=== PATIENT | male | born 1975 | race African-American/Black ===

== ENCOUNTER → 2017-10-23 | Outpatient (CLI) | payer OTHER | LOC: M RAD 09:47 | DX: M54.2 Cervicalgia (principal); M51.34 Other intervertebral disc degeneration, thoracic region; M41.35 Thoracogenic scoliosis, thoracolumbar region | CPT/HCPCS: 72052 ==

== ENCOUNTER 2017-12-12 20:01 | Emergency (ER) | payer OTHER ==
[2017-12-12] MEDS: NS 1,000 ML IV (20:30)
[2017-12-12 20:38] LABS: BASO % 0.2 % (0.0-1.0); EOS # 0.1 10^3/uL (0.0-0.50); EOS % 0.7 % (0.0-3.0); HEMATOCRIT 42.6 % (42.0-52.0); HEMOGLOBIN 14.1 g/dl (13.5-17.5); IMMATURE GRANULOCYTE % 0.2 % (0-3.0); LYMPH # 3.4 10^3/uL (1.5-4.5); LYMPH % 32.4 % (24.0-44.0); MEAN CORPUSCULAR HEMOGLOBIN 30.1 pg (27.0-33.0); MEAN CORPUSCULAR HGB CONC 33.1 g/dl (32.0-36.5); MEAN CORPUSCULAR VOLUME 90.8 fl (80.0-96.0); MONO # 0.8 10^3/uL (0.0-0.8); MONO % 7.1 % (0.0-5.0); NEUTROPHILS # 6.3 10^3/uL (1.8-7.7); NEUTROPHILS % 59.4 % (36.0-66.0); PLATELET COUNT, AUTOMATED 257 10^3/uL (150-450); RED BLOOD COUNT 4.69 10^6/uL (4.30-6.10); RED CELL DISTRIBUTION WIDTH 13.9 % (11.5-14.5); WHITE BLOOD COUNT 10.6 10^3/uL (4.0-10.0)
[2017-12-12 20:51] LABS: KETONE, URINE AUTO RFX NEGATIVE (NEGATIVE); MUCUS, URINE RFX SMALL (NEGATIVE); NITRITE, URINE AUTO RFX NEGATIVE (NEGATIVE); RBC, URINE AUTO RFX 4 /HPF (0-3); SPECIFIC GRAVITY UR AUTO RFX 1.015 (1.002-1.035); SQUAM EPITHELIAL CELL UR AURFX 0 /HPF (0-6)
[2017-12-12 20:56] LABS: LEUKOCYTE ESTERASE UR AUTO RFX TRACE (NEGATIVE); WBC, URINE AUTO RFX 12 /HPF (0-3)
[2017-12-12 21:01] LABS: ALBUMIN 3.4 GM/DL (3.2-5.2); ALBUMIN/GLOBULIN RATIO 0.92 (1.00-1.93); ALKALINE PHOSPHATASE 33 U/L (45-117); ALT/SGPT 45 U/L (12-78); AMYLASE 73 U/L (25-115); ANION GAP 6 MEQ/L (8-16); AST/SGOT 22 U/L (7-37); BILIRUBIN,DIRECT < 0.1 MG/DL (0.0-0.2); BILIRUBIN,TOTAL 0.2 MG/DL (0.2-1.0); BLOOD UREA NITROGEN 16 MG/DL (7-18); CALCIUM LEVEL 8.6 MG/DL (8.5-10.1); CARBON DIOXIDE LEVEL 26 MEQ/L (21-32); CHLORIDE LEVEL 113 MEQ/L (98-107); CREATININE FOR GFR 1.14 MG/DL (0.70-1.30); GLOMERULAR FILTRATION RATE > 60.0 (>60); GLUCOSE, FASTING 108 MG/DL (70-100); LIPASE 167 U/L (73-393); POTASSIUM SERUM 4.1 MEQ/L (3.5-5.1); SODIUM LEVEL 145 MEQ/L (136-145); TOTAL PROTEIN 7.1 GM/DL (6.4-8.2)
[2017-12-12] MEDS: BACTRIM 160MG/800MG DS TAB PO (22:18)
== END 2017-12-12 22:33 | disposition home or self-care (01) ==
LOC: M ED 20:01
DX: N20.1 Calculus of ureter (principal); N39.0 Urinary tract infection, site not specified; Z79.899 Other long term (current) drug therapy; Z87.891 Personal history of nicotine dependence
CPT/HCPCS: 74176